=== PATIENT | female | born 1970 | race Two or more races ===

== ENCOUNTER 2017-11-16 10:38 | Outpatient (CLI) | payer OTHER ==
[2017-11-16 11:07] LABS: % BASOPHILS 0.5 % (0.0-2.0); % EOSINOPHILS 2.6 % (0.0-5.0); % LYMPHOCYTES 27.1 % (20.0-50.0); % MONOCYTES 6.1 % (2.0-10.0); % NEUTROPHILS 63.7 % (40.0-80.0); EOSINOPHILE ABSOLUTE 0.1 Th/cmm (0.1-0.4); HEMATOCRIT 39.1 % (41.0-60); LYMPHOCYTE ABSOLUTE 1.5 Th/cmm (1.5-3.0); MEAN CELL VOLUME 82.2 fl (81-100); MEAN CORPUSCULAR HEMOGLOBIN 27.3 pg (27.0-31.0); MEAN CORPUSCULAR HGB CONC 33.2 pg (28.0-36.0); MEAN PLATELET VOLUME 8.1 fl; MONOCYTE ABSOLUTE 0.3 Th/cmm (0.3-1.0); NEUTROPHILE ABSOLUTE 3.5 Th/cmm (1.8-8.0); PLATELET COUNT 288 Th/cmm (150-400); RED BLOOD COUNT 4.76 Mil/cmm (3.80-5.10); RED CELL DISTRIBUTION WIDTH 14.8 % (11.5-20.0); WHITE BLOOD COUNT 5.4 Th/cmm (4.8-10.8)
[2017-11-16 11:26] LABS: DDIMER QUANT 191 ng/mL (100-400)
[2017-11-16 11:28] LABS: ALB/GLOB RATIO 1.3 (1.0-1.8); ALBUMIN 3.8 gm/dL (3.7-5.3); ALKALINE PHOSPHATASE 33 U/L (34-104); ANION GAP 8.3 (7.0-16.0); BILIRUBIN,TOTAL 0.7 mg/dL (0.3-1.0); BUN - UREA NITROGEN 11 mg/dL (7-25); CARBON DIOXIDE 28.6 mEq/L (21.0-31.0); CHLORIDE 104 mEq/L (98-107); CREATININE - SERUM 0.7 mg/dL (0.6-1.2); GFR AFRICAN-AMERICAN > 60.0 ml/min (>90); GFR NON AFRICAN-AMERICAN > 60.0 ml/min; GLUCOSE 102 mg/dL (70-105); POTASSIUM SERUM 3.9 mEq/L (3.5-5.1); SGOT 16 U/L (13-39); SGPT/ALT 18 U/L (7-52); SODIUM SERUM 137 mEq/L (136-145); TOTAL PROTEIN,SERUM 6.7 gm/dL (6.0-8.3)
[2017-11-16 11:30] LABS: ESR SEDIMENTATION SED RATE 35 mm/hr (0-30)
[2017-11-17 19:12] LABS: A1C % 4.9 % (4.0-6.0)
[2017-11-19 07:06] LABS: FOLIC ACID 9.7
[2017-11-19 07:17] LABS: T4 FREE 1.21
[2017-11-20 22:12] LABS: DIL RUSSELL VIPER VENOM TIME 35.6 sec (0.0-47.0)
== END 2017-11-16 11:00 | disposition home or self-care (01) ==
LOC: LAB 10:38
DX: R20.2 Paresthesia of skin (principal); D68.62 Lupus anticoagulant syndrome; Z88.0 Allergy status to penicillin
CPT/HCPCS: 36415-UA; 80053-TC; 82607-90; 82746-90; 83036-90; 84439-90; 84443-TC; 85025-TC; 85379-TC; 85613; 85613-90; 85652-TC; 85730-90; 86022-90

== ENCOUNTER 2018-02-26 07:50 | Outpatient (CLI) | payer OTHER ==
[2018-02-26 08:48] LABS: % BASOPHILS 1.1 % (0.0-2.0); % EOSINOPHILS 3.3 % (0.0-5.0); % LYMPHOCYTES 32.4 % (20.0-50.0); % MONOCYTES 6.9 % (2.0-10.0); % NEUTROPHILS 56.3 % (40.0-80.0); BASOPHILE ABSOLUTE 0.1 Th/cumm (0-0.2); EOSINOPHILE ABSOLUTE 0.2 Th/cmm (0.1-0.4); HEMATOCRIT 35.9 % (41.0-60); HEMOGLOBIN 11.9 gm/dL (12-16); LYMPHOCYTE ABSOLUTE 1.5 Th/cmm (1.5-3.0); MEAN CELL VOLUME 78.6 fl (81-100); MEAN CORPUSCULAR HEMOGLOBIN 26.1 pg (27.0-31.0); MEAN CORPUSCULAR HGB CONC 33.2 pg (28.0-36.0); MEAN PLATELET VOLUME 8.1 fl; MONOCYTE ABSOLUTE 0.3 Th/cmm (0.3-1.0); NEUTROPHILE ABSOLUTE 2.5 Th/cmm (1.8-8.0); PLATELET COUNT 265 Th/cmm (150-400); RED BLOOD COUNT 4.57 Mil/cmm (3.80-5.10); RED CELL DISTRIBUTION WIDTH 14.1 % (11.5-20.0); WHITE BLOOD COUNT 4.6 Th/cmm (4.8-10.8)
[2018-02-26 09:05] LABS: ANION GAP 10.4 (7.0-16.0); BUN - UREA NITROGEN 18 mg/dL (7-25); CALCIUM SERUM 9.1 mg/dL (8.6-10.3); CARBON DIOXIDE 27.3 mEq/L (21.0-31.0); CHLORIDE 106 mEq/L (98-107); CHOLESTEROL 200 mg/dL (<200); CREATININE - SERUM 0.8 mg/dL (0.6-1.2); GFR AFRICAN-AMERICAN > 60.0 ml/min (>90); GFR NON AFRICAN-AMERICAN > 60.0 ml/min; GLUCOSE 96 mg/dL (70-105); HDL -HIGH DENSITY LIPOPROTEIN 82 mg/dL (23-92); MAGNESIUM 2.3 mg/dL (1.9-2.7); POTASSIUM SERUM 3.7 mEq/L (3.5-5.1); SODIUM SERUM 140 mEq/L (136-145); TRIGLYCERIDES 76 mg/dL (<150)
[2018-02-26 09:26] LABS: DDIMER QUANT < 100 ng/mL (100-400)
[2018-02-26 10:41] LABS: ESR SEDIMENTATION SED RATE 41 mm/hr (0-30)
[2018-02-27 11:16] LABS: IRON LC 30 ug/dL (27-159); PREALBUMIN 19 mg/dL (12-34); TIBC (LC) 439 ug/dL (250-450); TRANSFERRIN 352 mg/dL (200-370); UIBC 409 ug/dL (131-425)
[2018-02-27 12:14] LABS: FOLIC ACID 10.8 ng/mL (>3.0)
[2018-03-01 08:12] LABS: DIL RUSSELL VIPER VENOM TIME 32.8 sec (0.0-47.0)
[2018-03-03 16:23] LABS: VITAMIN A SEE REF. LAB REPORT
== END 2018-02-26 09:30 | disposition home or self-care (01) ==
LOC: EEVIPCON 07:50 → LAB 07:50
DX: M79.7 Fibromyalgia (principal); D68.61 Antiphospholipid syndrome; R76.8 Other specified abnormal immunological findings in serum; K90.9 Intestinal malabsorption, unspecified; R79.89 Other specified abnormal findings of blood chemistry; R53.83 Other fatigue; E78.5 Hyperlipidemia, unspecified
CPT/HCPCS: 36415-UA; 80048-TC; 80061-TC; 82306-90; 82607-90; 82728-90; 82746-90; 83036-90; 83540-90; 83550-90; 83735-TC; 84134-90; 84207-90; 84252-90; 84425-90; 84443-TC; 84446-90; 84466-90; 84590-90; 84591-90; 84630-90; 85025-TC; 85379-TC; 85384-TC; 85613; 85613-90; 85652-TC; 85730-90; 86021-90; 86141-TC